=== PATIENT | male | born 1990 | race Caucasian/White ===

== ENCOUNTER 2018-05-20 15:30 | Emergency (ER) | payer MEDICAID, OTHER ==
[~2018-05-20] VITALS: Ht 182.9 cm; Wt 156.8 kg
[~2018-05-20 15:30] MED LIST: LISI10TA PO
[2018-05-20] MEDS ORDERED: KETOROLAC TROMETHAMINE 60 MG/2 ML VIAL IM ONE (17:15)
[2018-05-20] MEDS ORDERED: METHOCARBAMOL 500 MG TABLET PO ONE (17:15)
[2018-05-20 18:45] VITALS: BP 132/78
== END 2018-05-20 19:08 | disposition home or self-care (01) ==
LOC: EMS 15:30
DX: S33.5XXA Sprain of ligaments of lumbar spine, initial encounter (principal); I10 Essential (primary) hypertension; F12.90 Cannabis use, unspecified, uncomplicated; Z79.899 Other long term (current) drug therapy; X50.1XXA Overexertion from prolonged static or awkward postures, initial encounter; Y93.89 Activity, other specified; Y92.89 Other specified places as the place of occurrence of the external cause; Y99.8 Other external cause status
CPT/HCPCS: 96372; 99283; J1885

== ENCOUNTER 2022-03-28 19:44 | Emergency (ER) | payer MEDICAID ==
[~2022-03-28] VITALS: Ht 182.9 cm; Wt 159.1 kg
[2022-03-28] MEDS ORDERED: IBUP-2070 PO (21:29)
[2022-03-28] MEDS ORDERED: KETOROLAC TROMETHAMINE 60 MG/2 ML VIAL IM ONE (21:30)
[2022-03-28] MEDS ORDERED: LIDOCAINE 5% TRANSDERMAL PATCH TD ONE (21:30)
[2022-03-28 21:49] VITALS: BP 131/78
== END 2022-03-28 22:39 | disposition home or self-care (01) ==
LOC: EMS 19:44
DX: M54.50 Low back pain, unspecified (principal); M62.830 Muscle spasm of back; E11.9 Type 2 diabetes mellitus without complications; F10.20 Alcohol dependence, uncomplicated; I10 Essential (primary) hypertension; G89.29 Other chronic pain
CPT/HCPCS: 99283; 96372; J1885

== ENCOUNTER 2022-10-16 | Emergency (ER) | payer MEDICAID ==
[~2022-10-16] VITALS: Ht 177.8 cm; Wt 159.0 kg
[~2022-10-16] MED LIST changes: +IBUP-1492 PO
[2022-10-16 00:15] VITALS: BP 186/105
== END 2022-10-16 02:26 | disposition short-term general hospital (02) ==
LOC: EMS
DX: S91.331A Puncture wound without foreign body, right foot, initial encounter (principal); E11.9 Type 2 diabetes mellitus without complications; I10 Essential (primary) hypertension; F12.90 Cannabis use, unspecified, uncomplicated; W34.00XA Accidental discharge from unspecified firearms or gun, initial encounter; Y93.89 Activity, other specified; Y92.89 Other specified places as the place of occurrence of the external cause; Y99.8 Other external cause status
CPT/HCPCS: 99285; Z7502